=== PATIENT | female | born 1980 | race Hispanic/Latino ===

== ENCOUNTER 2019-09-23 09:22 | Inpatient (IN) | payer OTHER, SELFPAY ==
[2019-09-23] VITALS (8 sets, daily range): BP systolic 108–130; BP diastolic 60–62; PULSE 89–108; RESP 16–18; TEMP 36.4–36.7; O2SAT 93–97; BMI 25.9
--- NOTE | ~2019-09-23 | XR_ITS ---
EXAMINATION: XR chest 2V EXAM DATE: 09/24/2019 07:50 INDICATION: Cough, shortness of breath. History asthma. TECHNIQUE: Frontal and lateral projections of the chest obtained and reviewed. Comparison is made to prior examination from 02/12/2019. FINDINGS: There are small bibasilar linear opacities which appear new compared to prior study, proba krista small scattered regions of atelectasis. No confluent consolidation, pneumothorax or pleural effus ion suspected. Cardiomediastinal silhouette is normal. There are no osseous abnormalities identified. IMPRESSION: Bibasilar linear opacities most consistent with scattered atelectasis. Reviewed, dictated and finalized at location A. IMPRESSION: Bibasilar linear opacities most consistent with scattered atelectas is.
--- NOTE | ~2019-09-23 | CT_ITS ---
EXAMINATION: CT sinus wo con DATE: 09/23/2019 11:44 INDICATION: Allergic rhinitis with asthma and chronic congestion. TECHNIQUE: Computed tomography (CT) of the paranasal sinuses was performed without intravenous contra st. Iterative reconstruction technique was employed. The dose-length product was 304.88 mGy-cm. COMPARISON: None FINDINGS: There is extensive mucosal thickening in the frontal, ethmoid, and left maxillary sinuses. There is moderate mucosal thickening in sphenoid sinus and right maxillary sinus. There is a left lat eral spur of the nasal septum. The ostiomeatal units are totally occluded. IMPRESSION: 1. Extensive mucosal thickening in the paranasal sinuses with occlusion of the ostiomeatal units. Reviewed, dictated and finalized at location A.
--- NOTE | 2019-09-23 10:10 | PM.IMHP ---
H&P: HPI History of Present Illness Chief complaint: COVID POI/Asthma Narrative: Date of visit 09/22 929. Adrianne Reeves is a 39 year old female with known history of asthma who presented to [facility] with increasing cough and shortness breath over the last week. She has had problems flaring of her asthma since she had pneumonia last fall was last hospitalized here at [place] January 2019. Evaluated that time for connective tissue disease and eventually saw an senior product integrity engineer in [place] with no further intervention other than her antihistamines and nasal steroid inhaler. she had smoked for over a year and works weekends at [employer] 12 hour shifts. Some dust therapy but no real occupational exposure and does wear a mask. She has had no fever no chills and has had decreased taste and smell for over a year due to her present condition. while at [facility] emergency room she was hypoxic on arrival and after treatment improved but continue to desaturate with minimal ambulation does transferred here for further treatment and evaluation. Due to the COVID outbreak , she has not seen Dr. Ramirez motorboat mechanic inboard/outboard. She has been on bursts of steroids on several different occasions from her primary care since the of the year and does well when she is on them but relapses. cough has no purulence material. 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 She designates her mother, Radha Lambert, as her surrogate decision maker. She wishes to be a full code. She was a social smoker, mainly smoking about a 4th of a pack of cigarettes on the weekends, for about 15 years and quit in September 2018. She denies alcohol abuse. Smoking packs per day: 0.5 Smoking cigarettes per day: 10.0 Years smoked: 28 Smoking pack-years: 14.00 Smoking status: Former smoker Tobacco type: cigarettes Smoking end date: 09/26/18 Additional smoking assessment comments: patient states only smoked on weekends while at work Alcohol intake: never Substance use: never Substance use type: marijuana Gender identity (if verbalized by the patient): Female Spiritual care concerns: No Agree to blood products: No Meds Home Medications and Allergies Home Medications Medication Instructions Recorded Confirmed Type albuterol sulfate 2 puff INHALATION Q4HWA 02/08/19 09/23/19 History fluticasone propion-salmeterol 1 inh INHALATION Q12H 02/08/19 09/23/19 History [Advair Diskus] cetirizine 10 mg PO DAILY 09/23/19 09/23/19 History fluticasone propionate 2 spray INTRANASAL DAILY 09/23/19 09/23/19 History Allergies Allergy/AdvReac Type Severity Reaction Status Date / Time No Known Allergies Allergy Unverified 10/02/17 14:40 Exam Narrative: Exam Narrative: blood pressure 110 pulse is 92 saturating 94% on room air respirations 18 per minute afebrile pupil equal reactive to light sclera anicteric mouth normal lungs expiratory rhonchi expiratory wheezing with prolonged expiratory phase and no area consolidation CV tachy no murmurs or gallops abdomen is soft nontender and no masses extremities without edema good distal pulses neuro alert pleasant cooperativ
--- NOTE | 2019-09-23 10:47 | ADMGEN ---
This patient, Adrianne Reeves, was admitted to [facility] Surg Room 300-01 @ 0920. Patient/family oriented to hospital policies and general routines including ID bracelet, bed and alarms, visiting hours, pain management, procedures, bathroom and other care routines, personal items, smoking policy, room service/diet, and visiting hours. Valuables list has been completed. Information on how to activate the Rapid Response Team has been discussed. Patient/Family are encouraged to report perceived risks to care and to ask questions if they do not understand what they are told or what they should do.
[2019-09-23] MEDS: FLUTICASONE PROPIONATE 0.05% NA SPR 16 GM BTL (*BKC) 2 SPRAY NASAL (12:26)
[2019-09-23] MEDS: LORATADINE 10 MG TABLET PO (12:27)
[2019-09-23] MEDS: IPRATROPIUM BR 0.02% INH SOLN 0.5 MG/2.5 ML VIAL INHALATION ×2 (13:26→19:23)
[2019-09-23] MEDS: ALBUTEROL SULFATE NEB 2.5 MG/0.5 ML INH 5 MG INHALATION ×2 (13:26→19:23)
[2019-09-23] MEDS: methylPREDNISolone SOD SUCC 125 MG VIAL 60 MG IV PUSH ×2 (13:33→23:14)
[2019-09-23] MEDS: IBUPROFEN 400 MG TABLET 800 MG PO (18:22)
[2019-09-23] MEDS: FLUTICASONE/SALMETEROL 115-21 MCG INHALER 1 PUFF 2 PUFF INHALATION (19:24)
[2019-09-23] MEDS: ENOXAPARIN 40 MG/0.4 ML SYRINGE SUB-Q (20:01)
[2019-09-24] VITALS (11 sets, daily range): BP systolic 115–122; BP diastolic 59–68; PULSE 80–127; RESP 16–20; TEMP 36.4–37.2; O2SAT 92–95
[2019-09-24] MEDS: ALBUTEROL SULFATE NEB 2.5 MG/0.5 ML INH 5 MG INHALATION ×3 (03:07→15:24)
[2019-09-24] MEDS: IPRATROPIUM BR 0.02% INH SOLN 0.5 MG/2.5 ML VIAL INHALATION ×4 (03:07→19:11)
[2019-09-24] MEDS: methylPREDNISolone SOD SUCC 125 MG VIAL 60 MG IV PUSH ×2 (05:11→16:57)
[2019-09-24 06:13] LABS: Basophils Percent Auto 0.1 % (0.2-1.2); Hematocrit 35.9 % (37.0-47.0); Hemoglobin 12.2 g/dL (12.0-15.0); Lymphocytes Absolute Auto 0.38 K/mm3 (0.9-3.2); Lymphocytes Percent Auto 3.8 % (18.3-44.2); Mean Corpuscular Volume 91.3 fl (80-100); Mean Platelet Volume 10.3 fl (7.4-10.4); Monocytes Absolute Auto 0.2 K/mm3 (0.1-0.6); Monocytes Percent Auto 2.3 % (2.6-8.5); Neutrophils Absolute Auto 9.2 K/mm3 (1.3-6.7); Neutrophils Percent Auto 92.8 % (45.5-73.1); Platelet Count Result 338 k/mm3 (150-375); Red Blood Count 3.93 M/mm3 (4.2-5.4); Red Cell Distribution Width 13.1 % (11.5-14.5)
[2019-09-24 06:33] LABS: Anion Gap 11.5 mmol/L (7-16); Blood Urea Nitrogen 13 mg/dL (7-17); Calcium 8.4 mg/dL (8.4-10.2); Carbon Dioxide 23 mmol/L (22-30); Chloride 107 mmol/L (98-107); Estimated CRCL calculation 113 ml/min; Estimated Glomerular Filt Rate > 60; Glucose 183 mg/dL (65-105); Potassium 3.5 mmol/L (3.4-5.0); Sodium 138 mmol/L (137-145)
[2019-09-24] MEDS: FLUTICASONE/SALMETEROL 115-21 MCG INHALER 1 PUFF 2 PUFF INHALATION ×2 (07:52→19:12)
[2019-09-24] MEDS: FLUTICASONE PROPIONATE 0.05% NA SPR 16 GM BTL (*BKC) 2 SPRAY NASAL (08:21)
[2019-09-24] MEDS: LORATADINE 10 MG TABLET PO (08:21)
[2019-09-24] MEDS: IBUPROFEN 400 MG TABLET 800 MG PO (08:22)
[2019-09-24] MEDS: traMADol HCL 50 MG TABLET PO (11:50)
--- NOTE | 2019-09-24 12:53 | PM.IMPN ---
Progress Note: A&P Assessment and Plan (1) Acute respiratory failure with hypoxia: Code(s): J96.01 - Acute respiratory failure with hypoxia Status: Acute Assessment and Plan: has improved but still desaturations with activity so will continue parental steroids and taper to Q 12 hours and updraft treatments. Does not appear to be infectious but CT scan of the sinuses revealed marked mucosal thickening in all sinus cavities so antibiotics started. (2) Unspecified asthma: Code(s): J45.909 - Unspecified asthma, uncomplicated Status: Acute Assessment and Plan: as above updrafts steroids and continue her maintenance Advair (3) Allergic asthma with acute exacerbation: Code(s): J45.901 - Unspecified asthma with (acute) exacerbation Status: Acute Assessment and Plan: no obvious precipitating factor. Continue treatment of above with treatment for her allergic rhinitis 1 of her antibodies for Aspergillus was slightly elevated in the past and will have seen by Pulmonary again (4) DVT prophylaxis: Code(s): Z29.9 - Encounter for prophylactic measures, unspecified Status: Acute Assessment and Plan: Lovenox Subjective Date/time seen: 09/24/19 12:53 Interval history: Date of visit 09/23. 39 y/ o admitted with hypoxia increasing cough shortness of breath and cough. Transfer for now psych facility since she had her care here before. She feels better this a.m., But still quite a bit of cough. Exam Narrative: Exam Narrative: blood pressure 122/60 pulse is 98 saturating 95% on room air respirations 16 per minute afebrile pupil equal reactive to light sclera anicteric mouth normal lungs still expiratory rhonchi expiratory wheezing with prolonged expiratory phase and no area consolidation CV tachy no murmurs or gallops abdomen is soft nontender and no masses extremities without edema good distal pulses neuro alert pleasant cooperative no focal deficits integument no skin breakdown or rashes Objective Data Vital Signs Vital Signs: Vital Signs - 24 hr 09/23/19 13:27 09/23/19 13:39 09/23/19 14:00 Temperature 36.4 C L Pulse Rate 108 H 105 H 95 Respiratory Rate 18 18 18 Blood Pressure 108/60 Pulse Oximetry 97 09/23/19 19:23 09/23/19 19:34 09/23/19 20:00 Temperature Pulse Rate 89 94 103 H Respiratory Rate 18 18 16 Blood Pressure Pulse Oximetry 93 94 07/28/20 21:30 09/24/19 03:08 09/24/19 03:17 Temperature 36.5 C Pulse Rate 103 H 92 94 Respiratory Rate 16 18 18 Blood Pressure 130/60 Pulse Oximetry 94 09/24/19 06:00 09/24/19 07:53 09/24/19 08:08 Temperature 36.4 C L Pulse Rate 98 92 100 Respiratory Rate 16 18 18 Blood Pressure 122/61 Pulse Oximetry 95 Intake/Output Intake/Output: Intake & Output 09/21/19 09/22/19 09/23/19 09/24/19 23:59 23:59 23:59 23:59 Intake Total 1030 890 Output Total 500 800 Balance 530 90 Meds/Results Medications: Active Medications Generic Name Dose Route Start Last Admin Trade Name Freq PRN Reason Stop Dose Admin Acetaminophen 650 mg 09/23/19 09:53 Tylenol Tablet PO Q4H PRN Mild Pain (1-3) or Fever Albuterol 5 mg 09/23/19 14:00 09/24/19 07:52 Albuterol Sulf Neb 2.5mg/0.5ml INHALATION 5 mg Q6HRT MANOHAR Administration Enoxaparin Sodium 40 mg 09/23/19 21:00 09/23/19 20:01 Lovenox SUB-Q 40 mg HS MANOHAR Administration Fluticasone Propionate 2 spray 09/23/19 09:00 09/24/19 08:21 Flonase 0.05% Nasal [place] NASAL 2 spray DAILY MANOHAR Administration Ceftriaxone Sodium/Dextrose 1 gm in 50 mls @ 100 mls/hr 09/24/19 07:00 09/24/19 11:22 Rocephin 1 Gm/D5w 50 Ml IVPB Infused Q24H MANOHAR Infusion Ibuprofen 800 mg 09/23/19 18:02 09/24/19 08:22 Motrin PO 800 mg Q12H PRN Administration Headache Ipratropium [place] 0.5 mg 09/23/19 14:00 09/24/19 07:52 Atrovent Neb INHALATION 0.5 mg Q6HRT MANOHAR
--- NOTE | 2019-09-24 13:26 | PM.CNPUL ---
History of Present Illness History of Present Illness Consult date: 09/24/19 Requesting physician: Jag Baron MD Reason for consult: other (asthma exacerbation) Chief complaint: Asthma/Shortness of Breath Narrative: Asthma exacerbation see job # [id number] A/P: Allergic asthma exacerbation; steroid dependent; when she is off steroids, symptoms recur sinusitis bronchiectasis h/o elevated IgE environmental allergies; trees, grass, cats, dogs Add Pulmozyme, [place], continue antibiotics for sinusitis, nasal steroids, decongestant. continue Vest therapy for bronchiectasis monitor peak flows and O2 saturation She has a few tests yet to be completed with her allergiest-immunonologist discussed with Dr Baron. [facility] Family History Family History (Updated 09/23/19 @ 10:04 by Ashanti Hunt RN) Mother Diabetes mellitus Cancer Sibling Hypertension Social History Social History (Updated 09/23/19 @ 10:18 by Jag Baron MD) Social History: The patient lives in [place] with her 4 children ranging from age 4-22. 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 She designates her mother, Radha Lambert, as her surrogate decision maker. She wishes to be a full code. She was a social smoker, mainly smoking about a 4th of a pack of cigarettes on the weekends, for about 15 years and quit in September 2018. She denies alcohol abuse. Smoking packs per day: 0.5 Smoking cigarettes per day: 10.0 Years smoked: 28 Smoking pack-years: 14.00 Smoking status: Former smoker Tobacco type: cigarettes Smoking end date: 09/26/18 Additional smoking assessment comments: patient states only smoked on weekends while at work Alcohol intake: never Substance use: never Substance use type: marijuana Gender identity (if verbalized by the patient): Female Spiritual care concerns: No Agree to blood products: No Meds Home Medications and Allergies Home Medications Medication Instructions Recorded Confirmed Type albuterol sulfate 2 puff INHALATION Q4HWA 02/08/19 09/23/19 History fluticasone propion-salmeterol 1 inh INHALATION Q12H 02/08/19 09/23/19 History [Advair Diskus] cetirizine 10 mg PO DAILY 09/23/19 09/23/19 History fluticasone propionate 2 spray INTRANASAL DAILY 09/23/19 09/23/19 History Allergies Allergy/AdvReac Type Severity Reaction Status Date / Time No Known Allergies Allergy Unverified 10/02/17 14:40 Vital Signs Vital Signs - 24 hr 09/23/19 13:27 09/23/19 13:39 09/23/19 14:00 Temperature 36.4 C L Pulse Rate 108 H 105 H 95 Respiratory Rate 18 18 18 Blood Pressure 108/60 Pulse Oximetry 97 09/23/19 19:23 09/23/19 19:34 09/23/19 20:00 Temperature Pulse Rate 89 94 103 H Respiratory Rate 18 18 16 Blood Pressure Pulse Oximetry 93 94 09/23/19 21:30 09/24/19 03:08 09/24/19 03:17 Temperature 36.5 C Pulse Rate 103 H 92 94 Respiratory Rate 16 18 18 Blood Pressure 130/60 Pulse Oximetry 94 09/24/19 06:00 09/24/19 07:53 09/24/19 08:08 Temperature 36.4 C L Pulse Rate 98 92 100 Respiratory Rate 16 18 18 Blood Pressure 122/61 Pulse Oximetry 95 Results Laboratory Findings CBC and BMP: 09/24/19 05:30 09/24/19 05:30 Abnormal lab findings: Abnormal Labs 09/24/19 09/24/19 05:30 05:30 RBC 3.93 L Hct 35.9 L Immature Gran % (Auto) 1.0 H Neut % (Auto) 92.8 H Lymph % (Auto) 3.8 L Graham % (Auto) 2.3 L Baso % (Auto) 0.1 L Lymph # (Auto) 0.38 L Abs Immat Gran (auto) 0.10 H Absolute Neuts (auto) 9.2 H Creatinine 0.50 L Glucose 183 H
[2019-09-24] MEDS: DORNASE ALFA INH SOLN 1 MG/ML 2.5 ML AMP 2.5 MG INHALATION (19:12)
--- NOTE | 2019-09-24 20:05 | CONS_ITS ---
DATE OF CONSULTATION: 09/24/2019 REASON FOR CONSULTATION: Dr. Baron consulted me to see the patient for asthma exacerbation. HISTORY: This patient is a 39-year-old female, whom I saw in January when she was hospitalized for severe asthma. She has allergic asthma and had symptoms for over a year and had high IgE levels. She decompensated when steroids were weaned. She had a prior history of right middle lobe atelectasis and bronchiectasis. After starting a vibratory vest in the hospital and starting to use it at home, she did have improvement in her symptoms. However, she has continued to have problems with increasing symptoms when she has weaned off steroids. She saw an sticker operator, Dr. Prakash Hale at [place]. She has had extensive testing and was told that she has allergies to outside allergens such as grasses, trees, cats, and dogs. She has not been started on any immunotherapy. The majority of her testing has been negative and she will eventually have testing for atypical cystic fibrosis. She had echocardiogram with the finding of an intra-atrial septum that was aneurysmal, I do not believe that she has had a bubble study. She has intermittently required oxygen since her arrival here. She started a job a little over a month ago, working at [employer]. Weekend night shifts three 12s in a row. Last week she missed 1 shift due to sickness. She left on this Sunday morning, September 21, and in the morning, went to [facility] in [place]. She said that she has been off steroids for about a week and a half. She has had increase in her coughing, little sputum production, increased wheezing. With exertion, her saturation drops into the mid 80s. She has not had fevers, chills, loss of smell or taste, any worse than her baseline. Her chest x-ray today shows bibasilar linear opacities consistent with scattered atelectasis. CT of the sinus shows marked mucosal thickening in all sinus cavities. Therefore, antibiotics were started today. Her history on this issue does date back to August 2017, with severe intermittent urticaria with occasional angioedema that has been controlled on Benadryl with cetirizine or loratadine. She was also given multiple prednisone tapers. Her IgE previously was elevated at 1070. She has a prior history of tobacco, but none since September 2018. ALLERGIES: NO KNOWN DRUG ALLERGIES. SHE HAS CONTACT ALLERGIES TO CLEAR ADHESIVE DRESSINGS. HOME MEDICATIONS: 1. Albuterol rescue inhaler 2 puffs q.4 hours p.r.n. shortness of breath. 2. Cetirizine 10 mg a day. 3. Advair 1 puff q.12 hours. 4. Flonase nasal spray 2 sprays daily. PAST MEDICAL HISTORY: 1. History of allergic asthma with elevated IgE levels. 2. History of hypoxemic respiratory failure, this admission as well as in January 2019. 3. Aneurysmal dilatation of the interatrial septum without a shunt. Mild bronchiectasis with mild emphysema on chest CT dating back February 10, 2017. 4. Sinusitis. PAST SURGICAL HISTORY: None. SOCIAL HISTORY: History of tobacco half pack per day for 28 years, 14-pack year history, quit September 26, 2018. No current marijuana. She works at [employer]. She has 4 children. No alcohol abuse. FAMILY HISTORY: Mother has diabetes and history of cancer. Siblings have hypertension. REVIEW OF SYSTEMS: Her skin seems dry lately. She has not had a sore throat. She does cough frequently with no sputum production. The remainder of the 14-point review of systems is negative. PHYSICAL EXAMINATION: VITAL SIGNS: Height 1.65 m, weight 70.8 kg, BMI is 26, blood pressure 122/61, pulse 100, respirations 18, temperature 36.4, saturation 95% at rest. GENERAL: This is a pleasant 39-year-old female with frequent paroxysmal coughing, nonproduct
[2019-09-25] VITALS (12 sets, daily range): BP systolic 104–119; BP diastolic 61–62; PULSE 77–120; RESP 18–22; TEMP 36.7–37.1; O2SAT 94–97
[2019-09-25] MEDS: IPRATROPIUM BR 0.02% INH SOLN 0.5 MG/2.5 ML VIAL INHALATION ×4 (01:53→21:15)
[2019-09-25] MEDS: methylPREDNISolone SOD SUCC 125 MG VIAL 60 MG IV PUSH ×2 (06:02→17:39)
[2019-09-25] MEDS: FLUTICASONE PROPIONATE 0.05% NA SPR 16 GM BTL (*BKC) 2 SPRAY NASAL (08:10)
[2019-09-25] MEDS: LORATADINE 10 MG TABLET PO (08:10)
[2019-09-25] MEDS: FLUTICASONE/SALMETEROL 115-21 MCG INHALER 1 PUFF 2 PUFF INHALATION ×2 (08:50→21:15)
[2019-09-25] MEDS: DORNASE ALFA INH SOLN 1 MG/ML 2.5 ML AMP 2.5 MG INHALATION ×2 (08:50→21:15)
--- NOTE | 2019-09-25 14:38 | PM.IMPN ---
Progress Note: A&P Assessment and Plan (1) Acute respiratory failure with hypoxia: Code(s): J96.01 - Acute respiratory failure with hypoxia Status: Acute Assessment and Plan: has improved but still cough and some wheeze so will continue parental steroids 12 hours and updraft treatments. Does not appear to be infectious but CT scan of the sinuses revealed marked mucosal thickening in all sinus cavities so antibiotics started. (2) Unspecified asthma: Code(s): J45.909 - Unspecified asthma, uncomplicated Status: Acute Assessment and Plan: as above updrafts steroids and continue her maintenance Advair (3) Allergic asthma with acute exacerbation: Code(s): J45.901 - Unspecified asthma with (acute) exacerbation Status: Acute Assessment and Plan: no obvious precipitating factor. Continue treatment of above with treatment for her allergic rhinitis (4) DVT prophylaxis: Code(s): Z29.9 - Encounter for prophylactic measures, unspecified Status: Acute Assessment and Plan: Lovenox (5) Sinusitis: Code(s): J32.9 - Chronic sinusitis, unspecified Status: Acute Assessment and Plan: as above antibiotics and nasal steroids Subjective Date/time seen: 09/25/19 14:38 Interval history: Date of visit 09/24. 39 y/ o admitted with hypoxia increasing cough shortness of breath . Transfered from outside facility since she had her care here before. She feels better this a.m., with less cough and sob Exam Narrative: Exam Narrative: blood pressure 104/60 pulse is 94 saturating 95% on room air respirations 16 per minute afebrile pupil equal reactive to light sclera anicteric mouth normal lungs still some rhonchi but less expiratory wheezing with prolonged expiratory phase and no area consolidation CV tachy no murmurs or gallops abdomen is soft nontender and no masses extremities without edema good distal pulses neuro alert pleasant cooperative no focal deficits Objective Data Vital Signs Vital Signs: Vital Signs - 24 hr 09/24/19 15:25 09/24/19 15:34 09/24/19 19:12 Temperature Pulse Rate 80 127 H 92 Respiratory Rate 18 18 18 Blood Pressure Pulse Oximetry 92 09/24/19 19:25 09/24/19 21:57 09/25/19 01:53 Temperature 36.4 C Pulse Rate 95 93 99 Respiratory Rate 18 20 18 Blood Pressure 115/68 Pulse Oximetry 93 09/25/19 02:00 09/25/19 06:00 09/25/19 08:40 Temperature 36.8 C Pulse Rate 94 77 88 Respiratory Rate 18 20 18 Blood Pressure 104/61 Pulse Oximetry 95 09/25/19 08:48 09/25/19 08:50 Temperature Pulse Rate 93 Respiratory Rate 18 Blood Pressure Pulse Oximetry 94 Intake/Output Intake/Output: Intake & Output 09/22/19 09/23/19 09/24/19 09/25/19 23:59 23:59 23:59 23:59 Intake Total 1030 2020 840 Output Total 500 1550 1000 Balance 530 470 -160 Meds/Results Medications: Active Medications Generic Name Dose Route Start Last Admin Trade Name Freq PRN Reason Stop Dose Admin Acetaminophen 650 mg 09/23/19 09:53 Tylenol Tablet PO Q4H PRN Mild Pain (1-3) or Fever Dornase [place] 2.5 mg 09/24/19 20:00 09/25/19 08:50 Pulmozyme INHALATION 2.5 mg Q12HRT MANOHAR Administration Enoxaparin Sodium 40 mg 09/23/19 21:00 09/24/19 20:50 Lovenox SUB-Q Not Given HS MANOHAR Fluticasone Propionate 2 spray 09/23/19 09:00 09/25/19 08:10 Flonase 0.05% Nasal [place] NASAL 2 spray DAILY MANOHAR Administration Ceftriaxone Sodium/Dextrose 1 gm in 50 mls @ 100 mls/hr 09/24/19 07:00 09/25/19 06:48 Rocephin 1 Gm/D5w 50 Ml IVPB 100 mls/hr Q24H MANOHAR Administration Ibuprofen 800 mg 09/23/19 18:02 09/24/19 08:22 Motrin PO 800 mg Q12H PRN Administration Headache Ipratropium [place] 0.5 mg 09/23/19 14:00 09/25/19 08:50 Atrovent Neb INHALATION 0.5 mg Q6HRT MANOHAR Administration Levalbuterol HCl 1.25 mg 09/24/19 20:00 09/25/19 08
[2019-09-26] VITALS (7 sets, daily range): BP systolic 106; BP diastolic 58–71; PULSE 67–90; RESP 16–18; TEMP 36.3–36.7; O2SAT 94–99
[2019-09-26] MEDS: IPRATROPIUM BR 0.02% INH SOLN 0.5 MG/2.5 ML VIAL INHALATION ×3 (02:49→14:49)
[2019-09-26] MEDS: methylPREDNISolone SOD SUCC 125 MG VIAL 60 MG IV PUSH ×2 (06:27→17:08)
[2019-09-26] MEDS: DORNASE ALFA INH SOLN 1 MG/ML 2.5 ML AMP 2.5 MG INHALATION (08:02)
[2019-09-26] MEDS: FLUTICASONE PROPIONATE 0.05% NA SPR 16 GM BTL (*BKC) 2 SPRAY NASAL (08:27)
[2019-09-26] MEDS: LORATADINE 10 MG TABLET PO (08:27)
--- NOTE | 2019-09-26 15:36 | PM.PNPUL ---
Progress Note: A&P Assessment and Plan (1) Acute respiratory failure with hypoxia: Code(s): J96.01 - Acute respiratory failure with hypoxia Status: Acute Assessment and Plan: She has improved, does not require supplemental O2 today. discussed with Dr Baron (2) Allergic asthma with acute exacerbation: Code(s): J45.901 - Unspecified asthma with (acute) exacerbation Status: Acute Assessment and Plan: improved; will go home on (3) Bronchiectasis: Code(s): J47.9 - Bronchiectasis, uncomplicated Status: Acute Subjective Date/time seen: 09/26/19 15:36 Interval history: 39 year old female is seen in follow up for asthma exacerbation. She was also found to have sinusitis. SHe is now oxygenating well on room air, which is an improvement. She always decompensates when she is off steroids. Objective Data Vital Signs Vital Signs: Vital Signs - 24 hr 09/25/19 21:16 09/25/19 21:30 09/25/19 22:00 Temperature 37.1 C Pulse Rate 90 96 88 Respiratory Rate 18 18 18 Blood Pressure 115/61 Pulse Oximetry 97 09/26/19 02:49 09/26/19 03:00 09/26/19 06:00 Temperature 36.7 C Pulse Rate 90 85 67 Respiratory Rate 18 16 Blood Pressure 106/58 L Pulse Oximetry 99 09/26/19 08:02 09/26/19 08:14 09/26/19 14:00 Temperature 36.3 C L Pulse Rate 70 85 80 Respiratory Rate 16 18 16 Blood Pressure 106/71 Pulse Oximetry 94 09/26/19 14:51 Temperature Pulse Rate 85 Respiratory Rate 18 Blood Pressure Pulse Oximetry Intake/Output Intake/Output: Intake & Output 09/23/19 09/24/19 09/25/19 09/26/19 23:59 23:59 23:59 23:59 Intake Total 1030 2020 2170 1230 Output Total 500 1550 2300 2400 Balance 530 145 -130 1170 Meds/Results Medications: Active Medications Generic Name Dose Route Start Last Admin Trade Name Freq PRN Reason Stop Dose Admin Acetaminophen 650 mg 09/23/19 09:53 Tylenol Tablet PO Q4H PRN Mild Pain (1-3) or Fever Dornase Jewel 2.5 mg 09/24/19 20:00 09/26/19 08:02 Pulmozyme INHALATION 2.5 mg Q12HRT MANOHAR Administration Enoxaparin Sodium 40 mg 09/23/19 21:00 09/25/19 21:57 Lovenox SUB-Q Not Given HS MANOHAR Fluticasone Propionate 2 spray 09/23/19 09:00 09/26/19 08:27 Flonase 0.05% Nasal [place] NASAL 2 spray DAILY MANOHAR Administration Ceftriaxone Sodium/Dextrose 1 gm in 50 mls @ 100 mls/hr 09/24/19 07:00 09/26/19 07:19 Rocephin 1 Gm/D5w 50 Ml IVPB Infused Q24H MANOHAR Infusion Ibuprofen 800 mg 09/23/19 18:02 09/24/19 08:22 Motrin PO 800 mg Q12H PRN Administration Headache Ipratropium [place] 0.5 mg 09/23/19 14:00 09/26/19 14:49 Atrovent Neb INHALATION 0.5 mg Q6HRT MANOHAR Administration Levalbuterol HCl 1.25 mg 09/24/19 20:00 09/26/19 14:49 Xopenex 1.25 Mg/0.5 Ml INHALATION 1.25 mg Q6HRT MANOHAR Administration Loratadine 10 mg 09/23/19 09:00 09/26/19 08:27 Claritin PO 10 mg QAM MANOHAR Administration Magnesium Hydroxide 30 ml 09/23/19 09:53 Milk Of Magnesia PO DAILY PRN Constipation Methylprednisolone Sodium Succinate 60 mg 09/24/19 18:00 09/26/19 06:27 Solu-Medrol IV PUSH 60 mg Q12H MANOHAR Administration Ondansetron HCl 4 mg 09/23/19 09:53 Zofran Inj IV PUSH Q6H PRN Nausea And Vomiting Fluticasone/Salmeterol 2 puff 09/23/19 20:00 09/25/19 21:15 Advair Hfa 115-21 Mcg Inhaler (*Sp) INHALATION 2 puff Q12HRT MANOHAR Administration Tramadol HCl 50 mg 09/24/19 11:43 09/24/19 11:50 Ultram PO 50 mg Q6H PRN Administration Pain Rated 4-6 Radiology Results: ITS Impressions Sinuses CT 09/23/19 11:58 IMPRESSION: 1. Extensive mucosal thickening in the paranasal sinuses with occlusion of the ostiomeatal units. Chest X-Ray 09/24/19 08:06 IMPRESSION: Bibasilar linear opacities most consistent with scattered atelectasis.
--- NOTE | 2019-09-26 18:24 | PM.DS ---
DS: Admitting Diagnosis Admitting Diagnosis Admitting Diagnosis: Acute respiratory failure with hypoxia DS: Discharge Diagnosis Discharge Diagnosis (1) Acute respiratory failure with hypoxia: Code(s): J96.01 - Acute respiratory failure with hypoxia Status: Acute Assessment and Plan: has improved but still cough and some wheeze so will continue oral steroids on discharge and her usual inhalers. Did not appear to be infectious but CT scan of the sinuses revealed marked mucosal thickening in all sinus cavities so antibiotics started. and will complete 2 week course with Augmentin 875 b.i.d. satting 94-99 on room air before discharge (2) Unspecified asthma: Code(s): J45.909 - Unspecified asthma, uncomplicated Status: Acute Assessment and Plan: as above updrafts steroids and continue her maintenance Advair (3) Allergic asthma with acute exacerbation: Code(s): J45.901 - Unspecified asthma with (acute) exacerbation Status: Acute Assessment and Plan: no obvious precipitating factor other than possible sinusitis. Continue treatment of above with treatment for her allergic rhinitis (4) Sinusitis: Code(s): J32.9 - Chronic sinusitis, unspecified Status: Acute Assessment and Plan: as above antibiotics Augmentin 875 b.i.d. for 2 more weeks and nasal steroids she will follow-up with primary and Dr. Ramirez and if continued sinus problems probable refer to ENT DS: Summary Hospital Course Hospital Course: 39-year-old white female with allergic rhinitis and asthma presented to an outside hospital with increasing shortness of breath and cough. After treatment in the emergency room near she continued to desaturate with minimal exertion was transferred to our hospital for care. Here was given parental steroids updraft treatments and antibiotics when CT of the sinuses revealed pansinusitis. She was seen by Dr. Ramirez and will follow-up with her next 2-3 weeks. She will complete 2 week course of Augmentin 875 b.i.d. and tapering course of prednisone with her usual inhalers. She will be off work till 10/02 Time Spent with Patient Time attestation: Total time spent providing and/or coordinating discharge services: 35 minutes Exam Narrative: Exam Narrative: condition on discharge blood pressure 106/70 pulse is 80 saturating 94-99% on room air, respirations 16 per minute afebrile lungs clear prolonged expiratory phase and very faint end expiratory wheeze CV regular rate rhythm no murmurs extremities without edema good distal pulses neuro alert pleasant cooperative feeling well with slight headache which she had been having and complaining of insomnia while in hospital Discharge Plan Discharge Attending physician on discharge: Jag Baron Consulting providers: Hannah Ramirez Discharging Clinician: Jag Baron Patient Disposition: Home, Self-Care Activity: as tolerated Diet: regular Discharge Instructions: RTW 10/02 Patient Instructions: Antibiotic Form, Prednisone (By mouth), Amoxicillin/Clavulanate Potassium (By mouth), Asthma (DC) Stand Alone Forms: General Discharge Information, Work/School Release IP Follow-up/Referrals: Anjana,Pratibha Mcarthur NP [Primary Care Provider] - 4 Weeks Hannah Ramirez MD [Physician] - 2 Weeks Discharge Medications: New amoxicillin-pot clavulanate [Augmentin] 875-125 mg tablet 1 tablet PO Q12H Qty: 28 RF: 0 prednisone 20 mg tablet 20 mg PO DIRECTED Qty: 17 RF: 0 Continued fluticasone propion-salmeterol [Advair Diskus] 250-50 mcg/dose Blister With Device 1 inh INHALATION Q12H RF: 0 albuterol sulfate 90 mcg/actuation Hfa Aerosol Inhaler 2 puff INHALATION Q4HWA RF: 0 cetirizine 10 mg tablet 10 mg PO DAILY RF: 0 fluticasone propionate 50 mcg/actuation spray,suspension 2 spray INTRANASAL DAILY RF: 0 Date of admission: 09/25/19 14:53 Primary Ca
== END 2019-09-26 17:33 | disposition home or self-care (01) | DRG 141 ==
PROVIDERS: Admitting Provider Internal Medicine; PCP Nurse Practitioner; Visit Provider Internal Medicine
DX: J45.901 Unspecified asthma with (acute) exacerbation (principal); J32.8 Other chronic sinusitis; J47.9 Bronchiectasis, uncomplicated; Z87.891 Personal history of nicotine dependence
CPT/HCPCS: 36415; 70486; 71046; 80048; 85025; 94640; 94667; 96365; 96372; 96374; 96375; A9270; G0378; G0379; J0696; J1650; J2930

== ENCOUNTER 2019-11-23 15:01 | Emergency (ER) | payer OTHER, SELFPAY ==
--- NOTE | ~2019-11-23 | XR_ITS ---
EXAMINATION: XR foot LT min 3V DATE: 11/23/2019 15:28 INDICATION: Left foot pain TECHNIQUE: Dorsoplantar, lateral, and 2 oblique views of the left foot were obtained. COMPARISON: None. FINDINGS: There is mild lateral soft tissue swelling of the foot. No fracture, dislocation, or sublux ation is identified. Mild osteoarthritis is noted at the first metatarsophalangeal joint. IMPRESSION: 1. No acute osseous abnormality. Reviewed, dictated and finalized at location A.
[2019-11-23 15:08] VITALS: BP 134/84; PULSE 84; RESP 14; TEMP 36.9; O2SAT 98
--- NOTE | 2019-11-23 15:21 | ED.GENADULT ---
HPI - General Adult General Chief complaint: Extremity Injury, Lower Stated complaint: left foot pain Time Seen by Provider: 11/23/19 15:14 Source: patient and RN notes reviewed Limitations: no limitations History of Present Illness HPI narrative: 39-year-old female presents today with complaints of left foot pain and swelling for 1 day. Adrianne says she was play wrestling with her 21 year-old son when he tackled her causing her to fall with her foot under her causing injury to LT foot. Aleve (2 tablets last this morning at 09:00), ice, and elevation without relief. Hurts to bear weight. No radiation of pain. No numbness, tingling, or loss of mobility. Exacerbating factor applying weight and flexing toes upward. Denies inability to bear weight. Denies discoloration. Denies suspect foreign body. LMP 3 weeks ago. Remains active. The patient reports she have not been diagnosed with COVID-19. The patient reports she is not waiting for the results of a COVID-19 lab test. The patient reports she do not have fever, chills, weakness, or fatigue. The patient reports she do not have a new or worsening cough or shortness of breath. Denies chest pain. The patient reports she do not have any rhinorrhea, congestion, sore throat, loss of taste, nausea, vomiting, abdominal pain, and diarrhea. Tolerating po intake well. Denies recent traveling. Denies concerns for COVID-19 or exposures been home with limited outdoor exposure except for essential household needs, work, and return home. At this time, patient is not suspected of having COVID-19. Some parts of this dictation were generated by voice recognition software and may contain typographical and/or grammatical inaccuracies. Related Data Home Medications Medication Instructions Recorded Confirmed cetirizine 10 mg PO DAILY 09/23/19 11/23/19 Allergies Allergy/AdvReac Type Severity Reaction Status Date / Time No Known Allergies Allergy Verified 11/23/19 15:15 Review of Systems Review of Systems: Narrative: CONSTITUTIONAL: Denies fever, chills, sweats. EYES: Denies visual changes, redness, discharge. ENT: Denies rhinorrhea, congestion, sore throat, otalgia. CARDIOVASCULAR: Denies chest pain, palpitations, edema. RESPIRATORY: Denies dyspnea, wheezing, cough. GASTROINTESTINAL: Denies abdominal pain, nausea, vomiting, diarrhea. GENITOURINARY: Denies dysuria, hematuria, abnormal discharge. SKIN: Denies rash or itching. MUSCULOSKELETAL: Denies acute back pain or myalgia. Complains of pain and swelling to left foot. NEUROLOGIC: Denies numbness or focal weakness. PSYCHIATRIC: Denies anxiety or depression. All other systems reviewed are negative, except as documented in HPI and below. [facility] Past Medical History Medical History (Updated 11/23/19 @ 15:49 by ALEXANDRE Dia) Acute respiratory failure with hypoxia Anxiety Arthritis Back pain Bone spur LT knee Bronchiectasis DVT prophylaxis Echocardiogram findings abnormal, without diagnosis History of depression Pneumonia Pulmonary infiltrate in right lung on chest x-ray Recurrent bronchospasm Seasonal allergies Sinusitis Suicide attempt Unspecified asthma UTI (urinary tract infection) Surgical History Surgical History (Updated 11/23/19 @ 15:31 by ALEXANDRE Dia) History of left knee surgery Removal of bone spur. History of skin graft Right thigh; infected tattoo. History of tubal ligation Status post tonsillectomy and adenoidectomy Family History Family History Mother Diabetes mellitus Cancer Sibling Hypertension Social History Social History Social History: The patient lives in [place] with her 4 children ranging from age 4-22. 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 She designates her mother, Radha Lambert, as her surrogate decision maker. She wishes
== END 2019-11-23 15:54 | disposition home or self-care (01) ==
PROVIDERS: Emergency Provider Nurse Practitioner Family; PCP Nurse Practitioner
DX: S93.602A Unspecified sprain of left foot, initial encounter (principal); W03.XXXA Other fall on same level due to collision with another person, initial encounter; M19.90 Unspecified osteoarthritis, unspecified site; Z87.891 Personal history of nicotine dependence
CPT/HCPCS: 73630; 99213; G0463

== ENCOUNTER 2019-12-21 10:24 | Emergency (ER) | payer OTHER, SELFPAY ==
--- NOTE | ~2019-12-21 | XR_ITS ---
EXAMINATION: XR chest 2V DATE: 12/21/2019 10:53 INDICATION: Cough and shortness of breath TECHNIQUE: frontal and lateral views of the chest were obtained. COMPARISON: Chest radiograph dated 09/24/2019 FINDINGS: The lungs are clear with no focal airspace opacities, pulmonary edema, pleural effusion or pneumothor ax. The cardiomediastinal silhouette is normal. Visualized bones and soft tissues are unremarkable. IMPRESSION: 1. No acute cardiopulmonary disease. Reviewed, dictated and finalized at location A.
[2019-12-21 10:33] VITALS: BP 154/82; PULSE 115; RESP 20; TEMP 37.2; O2SAT 97
--- NOTE | 2019-12-21 10:37 | ED.GENADULT ---
HPI - General Adult General Chief complaint: Shortness of Breath/Dyspnea Stated complaint: cough congestion Time Seen by Provider: 12/21/19 10:37 Source: patient and RN notes reviewed Mode of arrival: ambulatory Limitations: no limitations History of Present Illness HPI narrative: 39-year-old female presents with complains of cough, shortness of breath, and chest congestion for the past 2 weeks. Adrianne says symptoms increased over the past 24-48 hours with dyspnea, wheezing, and chills. Duo nebs, mucus relief medication, and Zyrtec without relief. Constant dry cough with intermittent productive cough. 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 History of Asthma, Pneumonia respiratory failure, and hospitalizations due to respiratory distress. No rhinorrhea. Nasal congestion. Denies sore throat. No high fevers, drooling, neck or throat swelling. No chest pain. Denies nausea, vomiting, and abdominal pain. Tolerating liquids well. Remains active. The patient reports she have not been diagnosed with COVID-19. The patient reports she is not waiting for the results of a COVID-19 lab test. The patient reports she do not have weakness or fatigue. The patient reports she does have a worsening cough and shortness of breath. Works at [employer]. The patient reports she do not have any rhinorrhea, sore throat, loss of taste, and diarrhea. Denies recent traveling. Denies concerns for COVID-19 or exposures been home with limited outdoor exposure except for essential household needs, work, and return home. At this time, patient is not suspected of having COVID-19. Some parts of this dictation were generated by voice recognition software and may contain typographical and/or grammatical inaccuracies. Related Data Home Medications Medication Instructions Recorded Confirmed cetirizine 10 mg PO DAILY 09/23/19 12/21/19 albuterol sulfate 2 puff INHALATION Q4H PRN 12/21/19 12/21/19 fluticasone propion-salmeterol 1 inh INHALATION BID 12/21/19 12/21/19 [Wixela Inhub] ipratropium-albuterol 3 ml INHALATION QID PRN 12/21/19 12/21/19 Allergies Allergy/AdvReac Type Severity Reaction Status Date / Time No Known Allergies Allergy Verified 11/23/19 15:15 Review of Systems Review of Systems: Narrative: CONSTITUTIONAL: Denies sweats, fatigue, fever. Complains of chills. EYES: Denies visual changes, redness, discharge. ENT: Complains of congestion. Denies rhinorrhea, sore throat, otalgia. CARDIOVASCULAR: Denies chest pain, palpitations, edema. RESPIRATORY: Complains of dyspnea, wheezing, dry cough, chest congestion, intermittent productive cough. GASTROINTESTINAL: Denies abdominal pain, nausea, vomiting, diarrhea. GENITOURINARY: Denies dysuria, hematuria, abnormal discharge. SKIN: Denies rash or itching. MUSCULOSKELETAL: Denies acute back pain, joint pain, or myalgia. NEUROLOGIC: Denies numbness or focal weakness. PSYCHIATRIC: Denies anxiety or depression. [facility] Past Medical History Medical History (Updated 12/21/19 @ 12:12 by ALEXANDRE Dia) Acute respiratory failure with hypoxia Acute upper respiratory infection Anxiety Arthritis Back pain Bone spur LT knee Bronchiectasis DVT prophylaxis Echocardiogram findings abnormal, without diagnosis History of depression Pneumonia Pulmonary infiltrate in right lung on chest x-ray Recurrent bronchospasm Seasonal allergies Sinusitis Smoker Suicide attempt Unspecified asthma UTI (urinary tract infection) Surgical History Surgical History History of left knee surgery Removal of bone spur. History of skin graft Right thigh; infected tattoo. History of tubal ligation Status post tonsillectomy and adenoidectomy Family History Family History Mother Diabetes mellitus Cancer Sibling Hypertension Social History Social History (Reviewed
[2019-12-21] MEDS: ALBUTEROL SULFATE NEB 2.5 MG/3 ML INH INHALATION ×2 (11:01→11:48)
[2019-12-21] MEDS: IPRATROPIUM BR 0.02% INH SOLN 0.5 MG/2.5 ML VIAL INHALATION ×2 (11:01→11:48)
[2019-12-21 11:29] VITALS: PULSE 106; RESP 22; O2SAT 96
[2019-12-21 12:30] VITALS: BP 125/73; PULSE 91; RESP 20; O2SAT 97
== END 2019-12-21 12:35 | disposition home or self-care (01) ==
PROVIDERS: Emergency Provider Nurse Practitioner Family; PCP Nurse Practitioner
DX: J45.41 Moderate persistent asthma with (acute) exacerbation (principal); Z20.828 Contact with and (suspected) exposure to other viral communicable diseases; Z87.891 Personal history of nicotine dependence; M19.90 Unspecified osteoarthritis, unspecified site
CPT/HCPCS: 71046; 94640; 96372; 99213; G0463; J1100

== ENCOUNTER 2020-02-07 10:13 | Emergency (ER) | payer OTHER, MEDICAID, SELFPAY ==
--- NOTE | ~2020-02-07 | XR_ITS ---
EXAMINATION: XR chest 2V DATE: 02/07/2020 11:07 INDICATION: Cough TECHNIQUE: frontal and lateral views of the chest were obtained. COMPARISON: Chest radiograph dated 12/21/2019 FINDINGS: Right middle lobe opacity. Additional more subtle opacity at the left upper lung zone. No pulmonary e anjelica, pleural effusion or pneumothorax. The cardiomediastinal silhouette is normal. Visualized bones and soft tissues are unremarkable. IMPRESSION: 1. Opacities in the right middle and left upper lobes which could represent atelectasis and/or pneumo jennifer. Reviewed, dictated and finalized at location A. SUPERVISOR IMPRESSION: 1. Opacities in the right middle and left upper lobes which could represent ate lectasis and/or pneumonia.
[2020-02-07 10:40] VITALS: BP 130/81; PULSE 127; RESP 20; TEMP 36.7; O2SAT 96
--- NOTE | 2020-02-07 10:42 | ED.GENADULT ---
HPI - General Adult General Chief complaint: Upper Respiratory Infection Stated complaint: URI Time Seen by Provider: 02/07/20 10:42 Source: patient Mode of arrival: ambulatory Limitations: no limitations History of Present Illness HPI narrative: 39-year-old female patient presents to the [facility] with complaints of cough and shortness of breath for months. Patient states back in September she was hospitalized for severe pneumonia and respiratory failure. Patient has followed up with a toll test worker since then. Patient states that she is supposed to see her primary doctor on Sunday but states that she ran out of DuoNeb treatments this morning at 7 AM. Patient states she continues to have shortness of breath coughing and wheezing. Patient states that they cannot really figure out what is causing this. Patient states she was seen here in November and was referred to have a Covid test however she ended up getting her Covid test somewhere else besides [place] and was told that she was negative. Patient states that she continues to smoke cigarettes. Patient states that her cough is dry and nonproductive. Denies any fevers that she is aware of. Related Data Home Medications Medication Instructions Recorded Confirmed cetirizine 10 mg PO DAILY 09/23/19 02/07/20 albuterol sulfate 90 mcg INHALATION DIRECTED 02/07/20 02/07/20 Allergies Allergy/AdvReac Type Severity Reaction Status Date / Time No Known Allergies Allergy Verified 11/23/19 15:15 Review of Systems Review of Systems: Narrative: CONSTITUTIONAL: Denies fever, chills, or sweats. EYES: Denies visual changes, redness, or discharge. ENT: Denies rhinorrhea, congestion, sore throat, or otalgia. CARDIOVASCULAR: Denies chest pain, palpitations, or edema. RESPIRATORY: Positive cough with dyspnea. GASTROINTESTINAL: Denies abdominal pain, nausea, vomiting, or diarrhea. GENITOURINARY: Denies dysuria or hematuria. SKIN: Denies rash or itching. MUSCULOSKELETAL: Denies back pain, joint pain, or myalgia. NEUROLOGIC: Denies headache, numbness, or weakness. PSYCHIATRIC: Denies anxiety or depression. [facility] Past Medical History Medical History Acute respiratory failure with hypoxia Acute upper respiratory infection Anxiety Arthritis Back pain Bone spur LT knee Bronchiectasis DVT prophylaxis Echocardiogram findings abnormal, without diagnosis History of depression Pneumonia Pulmonary infiltrate in right lung on chest x-ray Recurrent bronchospasm Seasonal allergies Sinusitis Smoker Suicide attempt Unspecified asthma UTI (urinary tract infection) Surgical History Surgical History History of left knee surgery Removal of bone spur. History of skin graft Right thigh; infected tattoo. History of tubal ligation Status post tonsillectomy and adenoidectomy Family History Family History Mother Diabetes mellitus Cancer Sibling Hypertension Social History Social History Social History: The patient lives in [place] with her 4 children ranging from age 4-22. 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 She designates her mother, Radha Lambert, as her surrogate decision maker. She wishes to be a full code. She was a social smoker, mainly smoking about a 4th of a pack of cigarettes on the weekends, for about 15 years and quit in September 2018. She denies alcohol abuse. Smoking packs per day: 0.5 Smoking cigarettes per day: 10.0 Years smoked: 28 Smoking pack-years: 14.00 Smoking status: Former smoker Tobacco type: cigarettes Smoking end date: 09/26/18 Additional smoking assessment comments: patient states only smoked on weekends while at work Alcohol intake: never Substance use: never Substance use
[2020-02-07 10:56] VITALS: BP 130/81; PULSE 127; RESP 20; TEMP 36.7; O2SAT 96
[2020-02-07] MEDS: IPRATROPIUM BR 0.02% INH SOLN 0.5 MG/2.5 ML VIAL INHALATION (11:06)
[2020-02-07] MEDS: ALBUTEROL SULFATE NEB 2.5 MG/3 ML INH INHALATION (11:06)
[2020-02-07 11:32] VITALS: PULSE 127; RESP 20; O2SAT 96
[2020-02-07 12:14] VITALS: PULSE 138; RESP 20; O2SAT 96
== END 2020-02-07 12:13 | disposition home or self-care (01) ==
PROVIDERS: Emergency Provider Nurse Practitioner Family
DX: J18.9 Pneumonia, unspecified organism (principal); M19.90 Unspecified osteoarthritis, unspecified site; J45.909 Unspecified asthma, uncomplicated; F17.210 Nicotine dependence, cigarettes, uncomplicated
CPT/HCPCS: 71046; 94640; 99213; G0463

== ENCOUNTER 2020-09-01 17:24 | Emergency (ER) | payer OTHER, MEDICAID, SELFPAY ==
--- NOTE | ~2020-09-01 | XR_ITS ---
XR abdomen/kub 1V 09/01/2020 18:34 INDICATION: Foreign body. TECHNIQUE: KUB COMPARISON: None FINDINGS: Bowel gas pattern is normal. There is no evidence of free air, mass, organomegaly, ascites or obstruction. No abnormal calculi are seen. The bones appear intact. There is a vaginal. Syncope . No intra-abdominal foreign bodies identified. IMPRESSION: 1: No acute abdominal abnormality identified. Reviewed, dictated and finalized at location A.
--- NOTE | 2020-09-01 17:30 | ED.FEMALEGU ---
HPI - Female Genitourinary General Chief complaint: Urogenital-Female Stated complaint: unable to find tampon string Time Seen by Provider: 09/01/20 18:14 Source: patient and RN notes reviewed Mode of arrival: ambulatory Limitations: no limitations History of Present Illness HPI Narrative: 40-year-old female presents with concern for inability to remove a tampon. Reports she placed a tampon yesterday, has been unable to find the tampon string. She reports light menstrual flow currently. She denies abdominal pain, fever, general malaise. Denies purulent vaginal discharge. MD elicited complaint: other (Foreign body) Related Data Home Medications Medication Instructions Recorded Confirmed fluticasone propion-salmeterol 50 inh INHALATION DAILY 09/01/20 09/01/20 [Wixela Inhub] montelukast 10 mg PO DAILY 09/01/20 09/01/20 Allergies Allergy/AdvReac Type Severity Reaction Status Date / Time No Known Allergies Allergy Verified 09/01/20 18:24 Review of Systems Review of Systems: Narrative: CONSTITUTIONAL: Denies malaise, chills, sweats, or fever. GASTROINTESTINAL: Denies abdominal pain, nausea, vomiting GENITOURINARY: Denies dysuria or hematuria. Reports retained tampon SKIN: Denies rash or itching. MUSCULOSKELETAL: Denies back pain or myalgia. All systems reviewed & are unremarkable except as noted in HPI and below PMFSH Past Medical History Medical History Acute respiratory failure with hypoxia Acute upper respiratory infection Anxiety Arthritis Back pain Bone spur LT knee Bronchiectasis DVT prophylaxis Echocardiogram findings abnormal, without diagnosis History of depression Pneumonia Pulmonary infiltrate in right lung on chest x-ray Recurrent bronchospasm Seasonal allergies Sinusitis Smoker Suicide attempt Unspecified asthma UTI (urinary tract infection) Surgical History Surgical History History of left knee surgery Removal of bone spur. History of skin graft Right thigh; infected tattoo. History of tubal ligation Status post tonsillectomy and adenoidectomy Family History Family History Mother Diabetes mellitus Cancer Sibling Hypertension Social History Social History (Reviewed 12/21/19 @ 10:51 by RICHARD Dia Social History: The patient lives in [place] with her 4 children ranging from age 4-22. 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 She designates her mother, Radha Lambert, as her surrogate decision maker. She wishes to be a full code. She was a social smoker, mainly smoking about a 4th of a pack of cigarettes on the weekends, for about 15 years and quit in September 2018. She denies alcohol abuse. Smoking packs per day: 0.5 Smoking cigarettes per day: 10.0 Years smoked: 28 Smoking pack-years: 14.00 Smoking status: Former smoker Tobacco type: cigarettes Smoking end date: 09/26/18 Additional smoking assessment comments: patient states only smoked on weekends while at work Alcohol intake: never Substance use: never Substance use type: marijuana Gender identity (if verbalized by the patient): Female Spiritual care concerns: No Agree to blood products: No Comments At time of signature, agree with nursing past medical, surgical, social and family history. There is no relevant family history pertinent to the presenting complaint Exam Narrative: Exam Narrative: GENERAL: Well-appearing, well-nourished, and in no acute distress. HEAD: Normocephalic. EYES: PERRLA, conjunctivae clear. NECK: Supple. No lymphadenopathy CHEST: Clear to auscultation. No respiratory distress. HEART: Regular rate and rhythm. ABDOMEN: Soft, nontender upon palpation, nondistended, SKIN: Warm, dry, no rash. NEURO: Alert and oriented x3. PSYCH: Normal mood and aff
[2020-09-01 17:38] VITALS: BP 139/87; PULSE 76; RESP 18; TEMP 36.8; O2SAT 100
== END 2020-09-01 18:57 | disposition home or self-care (01) ==
PROVIDERS: Emergency Provider Nurse Practitioner
DX: Z71.1 Person with feared health complaint in whom no diagnosis is made (principal); Z87.891 Personal history of nicotine dependence; M19.90 Unspecified osteoarthritis, unspecified site
CPT/HCPCS: 74018; 99212; G0463

== ENCOUNTER 2021-11-10 04:12 | Emergency (ER) | payer OTHER, MEDICAID, SELFPAY ==
[2021-11-10] VITALS (22 sets, daily range): BP systolic 100–132; BP diastolic 76–88; PULSE 91–117; RESP 15–26; TEMP 37.1; O2SAT 92–93
--- NOTE | ~2021-11-10 | XR_ITS ---
EXAMINATION: XR chest 1V portable DATE: 11/10/2021 05:27 INDICATION: Dyspnea TECHNIQUE: frontal view of the chest was obtained. COMPARISON: Chest radiograph dated 02/07/2020 FINDINGS: New airspace opacities in the right mid and lower lung zones. No pleural effusion or pneumothorax. Th e cardiomediastinal silhouette is normal. Visualized bones and soft tissues are unremarkable. IMPRESSION: 1. New opacities in the right mid and lower lung zone which are concerning for pneumonia. The opacity in the midlung zone is relatively focal and would recommend radiographic follow-up to resolution to exclude less likely malignancy. Reviewed, dictated and finalized at location A. IMPRESSION: 1. New opacities in the right mid and lower lung zone which are concerning for pneumonia. The opacity in the midlung zone is relatively focal and would recomm end radiographic follow-up to resolution to exclude less likely malignancy.
[2021-11-10] MEDS: IPRATROPIUM BR 0.02% INH SOLN 0.5 MG/2.5 ML VIAL INHALATION (05:01)
[2021-11-10] MEDS: ALBUTEROL SULFATE NEB 2.5 MG/3 ML INH 5 MG INHALATION (05:02)
[2021-11-10 05:28] LABS: Basophils Absolute Auto 0.1 K/mm3 (0.0-0.1); Basophils Percent Auto 0.4 % (0.2-1.2); Eosinophils Absolute Auto 0.7 K/mm3 (0-0.3); Eosinophils Percent Auto 4.5 % (0-4.4); Hematocrit 36.7 % (37.0-47.0); Hemoglobin 12.7 g/dL (12.0-15.0); Immature Granulocyte Absolute 0.09 K/mm3 (0.00-0.031); Immature Granulocyte Percent A 0.6 % (0-0.5); Lymphocytes Absolute Auto 1.09 K/mm3 (0.9-3.2); Lymphocytes Percent Auto 6.8 % (18.3-44.2); Mean Corpuscular HGB Conc 34.6 g/dl (32-36); Mean Corpuscular Hemoglobin 31.8 pg (26-34); Mean Platelet Volume 9.9 fl (7.4-10.4); Monocytes Absolute Auto 0.8 K/mm3 (0.1-0.6); Neutrophils Absolute Auto 13.3 K/mm3 (1.3-6.7); Neutrophils Percent Auto 82.7 % (45.5-73.1); Platelet Count Result 352 k/mm3 (150-375); Red Blood Count 3.99 M/mm3 (4.2-5.4); White Blood Count 16.1 K/mm3 (4.5-10.0)
[2021-11-10 05:30] LABS: Alanine Aminotransferase 29 U/L (6-35); Albumin Level 3.9 g/dL (3.5-5.1); Alkaline Phosphatase 70 U/L (38-126); Anion Gap 10 mmol/L (8-16); Aspartate Amino Transferase 29 U/L (14-36); Bilirubin,Total 0.3 mg/dL (0.2-1.3); Blood Urea Nitrogen 11 mg/dL (7-17); Calcium 8.8 mg/dL (8.4-10.2); Carbon Dioxide 25 mmol/L (22-30); Chloride 100 mmol/L (98-107); Estimated CRCL calculation 94 ml/min; Estimated Glomerular Filt Rate > 60; Glucose 149 mg/dL (65-110); Magnesium 1.8 mg/dL (1.6-2.3); Potassium 3.2 mmol/L (3.4-5.0); Sodium 135 mmol/L (137-145)
[2021-11-10 06:13] LABS: SARS-CoV-2 RNA PCR Negative
[2021-11-10 06:14] LABS: Appearance Urine Clear (Clear); Bilirubin Urine Negative (Negative); Blood Urine Negative (Negative); Color Urine Yellow (Yellow); Glucose Urine UA Negative (Negative); Ketones Urine Trace mg/dL (Negative); Leukocyte Esterase Ur Negative LEU/UL (Negative); Nitrate Urine Negative (Negative); Protein Urine Negative (Negative); Specific Grav Ur 1.025 (1.001-1.035); Urobilinogen Urine 0.2 mg/dL (<2.0)
--- NOTE | 2021-11-10 06:18 | ED.GENADULT ---
HPI - General Adult General Chief complaint: Shortness of Breath/Dyspnea Stated complaint: SOB Time Seen by Provider: 11/10/21 04:34 History of Present Illness HPI narrative: Patient is a 41-year-old female who presents emergency department with chief complaint of shortness of breath. Patient reports she has history of asthma reports that she is also had episodes of multiple times with pneumonia. Patient reports over the last several days she has been having increasing shortness of breath worse whenever she exerts herself. Patient reports he has been coughing had a thick mucus production. Patient reports has been wheezing as well and has been using her inhaler. Patient reports no prior history of intubation but has had required BiPAP in the past Related Data Home Medications Medication Instructions Recorded Confirmed fluticasone 250 mcg-salmeterol 50 50 inh inhalation DAILY 09/01/20 09/01/20 mcg/dose blistr powdr for inhalation (Wixela Inhub) montelukast 10 mg tablet 10 mg PO DAILY 09/01/20 09/01/20 Allergies Allergy/AdvReac Type Severity Reaction Status Date / Time No Known Allergies Allergy Verified 09/01/20 18:24 Review of Systems Review of Systems: A 10 system review of systems was completed on the patient and is negative except for what is stated in the HPI. Nursing and ancillary documentation was reviewed. [facility] Past Medical History Medical History Acute respiratory failure with hypoxia Acute upper respiratory infection Anxiety Arthritis Back pain Bone spur LT knee Bronchiectasis DVT prophylaxis Echocardiogram findings abnormal, without diagnosis History of depression Pneumonia Pulmonary infiltrate in right lung on chest x-ray Recurrent bronchospasm Seasonal allergies Sinusitis Smoker Suicide attempt Unspecified asthma UTI (urinary tract infection) Surgical History Surgical History History of left knee surgery Removal of bone spur. History of skin graft Right thigh; infected tattoo. History of tubal ligation Status post tonsillectomy and adenoidectomy Family History Family History Mother Diabetes mellitus Cancer Sibling Hypertension Social History Social History Social History: The patient lives in [place] with her 4 children ranging from age 4-22. 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 She designates her mother, Radha Lambert, as her surrogate decision maker. She wishes to be a full code. She was a social smoker, mainly smoking about a 4th of a pack of cigarettes on the weekends, for about 15 years and quit in September 2018. She denies alcohol abuse. Smoking packs per day: 0.5 Smoking cigarettes per day: 10.0 Years smoked: 28 Smoking pack-years: 14.00 Smoking status: Former smoker Tobacco type: cigarettes Smoking end date: 09/26/18 Additional smoking assessment comments: patient states only smoked on weekends while at work Alcohol intake: never Substance use: never Substance use type: marijuana Gender identity (if verbalized by the patient): Female Spiritual care concerns: No Agree to blood products: No Exam Narrative: GENERAL: Well-appearing, well-nourished, and in no acute distress. HEAD: Normocephalic, atraumatic. EYES: PERRLA and EOMI. ENT: Nares clear, no rhinorrhea or epistaxis. Mucous membranes moist. NECK: Supple. CHEST: Scattered wheezes to auscultation. No respiratory distress. HEART: Regular rate and rhythm. No murmur heard. Normal peripheral pulses. ABDOMEN: Soft, nontender, nondistended, normal active bowel sounds. EXTREMITIES: Normal range of motion. No edema. SKIN: Warm, dry, no rash. NEURO: No focal deficits. Alert and oriented x3. PSYCH
[2021-11-10 06:23] LABS: Mucus Urine Rare /lpf; RBC Urine 0-2 /hpf (0-2); Squamous Epithelial Cell Urine Many /hpf (Few); WBC Urine 0-3 /hpf
[2021-11-10 06:24] LABS: Add Urine Microscopic? YES
== END 2021-11-10 06:45 | disposition home or self-care (01) ==
PROVIDERS: Emergency Provider Emergency Medicine; PCP Registered Nurse
DX: J18.9 Pneumonia, unspecified organism (principal); J45.901 Unspecified asthma with (acute) exacerbation; Z87.891 Personal history of nicotine dependence; Z20.822 Contact with and (suspected) exposure to COVID-19
CPT/HCPCS: 36415; 71045; 80053; 81001; 83605; 83735; 84145; 85025; 94640; 99283; C9803; U0003; U0005

== ENCOUNTER 2024-02-27 16:28 | Emergency (ER) | payer OTHER, MEDICAID, SELFPAY ==
[2024-02-27 16:35] VITALS: BP 135/83; PULSE 115; RESP 16; TEMP 36.6; O2SAT 100
--- NOTE | 2024-02-27 17:00 | ED.GENADULT ---
HPI - General Adult General Chief complaint: Skin/Abscess/Foreign Body Stated complaint: rash on face and body Time Seen by Provider: 02/27/24 17:00 Source: patient, RN notes reviewed and old records reviewed Mode of arrival: ambulatory Limitations: no limitations History of Present Illness HPI narrative: 43-year-old female presents to the [facility] with bilateral axilla rash is for 2 weeks. Has been taking Benadryl. States there very itchy. States on Sunday 2 days ago started with spots to her face. Denies any new creams ointments lotions or detergents. Patient reports a lot of environmental allergies Onset (ago): week(s) (2) Treatments prior to arrival: other (Benadryl) Related Data Home Medications ?Medication ?Instructions ?Recorded ?Confirmed ?Last Taken ?Type fluticasone 250 mcg-salmeterol 50 50 inh inhalation DAILY 09/01/20 09/01/20 Unknown History mcg/dose blistr powdr for inhalation (Wixela Inhub) montelukast 10 mg tablet 10 mg PO DAILY 09/01/20 09/01/20 Unknown History Allergies Allergy/AdvReac Type Severity Reaction Status Date / Time Sulfa (Sulfonamide Allergy Severe Anaphylaxis Verified 02/27/24 17:07 Antibiotics) Review of Systems Review of Systems: All systems reviewed & are unremarkable except as noted in HPI and below Constitutional: Constitutional: Reports no additional constitutional complaints ENT: Reports system reviewed and no additional complaints, except as documented Cardiovascular: Cardiovascular: Reports no additional cardiovascular complaints, Denies chest pain and Denies dyspnea Respiratory: Respiratory: Reports no additional respiratory complaints, Denies chest congestion, Denies cough and Denies dyspnea Musculoskeletal: Musculoskeletal: Reports no additional musculoskeletal complaints Integumentary/Breasts: Skin/Breast: Reports as per HPI PMF Past Medical History Medical History Smoker Acute upper respiratory infection Suicide attempt Anxiety Bone spur LT knee UTI (urinary tract infection) Back pain Arthritis Seasonal allergies Pneumonia Sinusitis Unspecified asthma Bronchiectasis Echocardiogram findings abnormal, without diagnosis DVT prophylaxis Pulmonary infiltrate in right lung on chest x-ray Recurrent bronchospasm Acute respiratory failure with hypoxia History of depression Surgical History Surgical History History of tubal ligation History of skin graft Right thigh; infected tattoo. History of left knee surgery Removal of bone spur. Status post tonsillectomy and adenoidectomy Family History Family History Mother Diabetes mellitus Cancer Sibling Hypertension Social History Social History Social History: The patient lives in [place] with her 4 children ranging from age 4-22. 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 She designates her mother, Radha Lambert, as her surrogate decision maker. She wishes to be a full code. She was a social smoker, mainly smoking about a 4th of a pack of cigarettes on the weekends, for about 15 years and quit in September 2018. She denies alcohol abuse. Smoking packs per day: 0.5 Smoking cigarettes per day: 10.0 Years smoked: 28 Smoking pack-years: 14.00 Smoking status: Former smoker Tobacco type: cigarettes Smoking end date: 09/26/18 Additional smoking assessment comments: patient states only smoked on weekends while at work Alcohol intake: never Substance use: never Substance use type: marijuana Gender identity (if verbalized by the patient): Female Spiritual care concerns: No Agree to blood products: No Comments At the time of my signature, I reviewed and agree with the nursing past medical, surgical, social, and family history. There is no relevant family history pertinent to the patient complaint. Exam Const: General: cooperative, healthy appearing, comfortable, no acute distress, well developed, alert and well nourished Nutritional Appearance: well nourished Orientation/consciousness: patient oriented x3 Limitations: no limitations HENMT: Head: normal to inspection Ears: hearing grossly normal bilaterally, external ears normal, TM's normal bilaterally, EAC's normal, mastoids normal and no periauricular adenopathy Mouth: Yes Normal oral and palatal mucosa present, Yes lip normal, Yes tongue normal and Yes moist mucous membranes Throat: posterior oropharynx normal, tonsils normal, uvula midline and no uvular edema Eyes: General: appearance normal, both eyes and all related structures Alignment and Position: alignment normal Neck: Neck: normal visual inspection, full ROM, no lymphadenopathy and no meningeal signs Chest: Chest palpation & inspection: normal inspection of the chest Resp: Effort & Inspection: normal respiratory effort and able to speak in complete sentences Auscultation: clear to auscultation bilaterally, no crackles, no rales, no rhonchi and no wheezes Cardio: Rate: regular rate Skin: General skin exam: normal color and no rashes or lesions noted Rashes: rashes noted (Bilateral axillas red, mildly raised, no increased warmth, no fluctuance.) Other: Hives noted to face without lip or tongue involvement. Neuro: General: patient oriented x3, gait normal, moves all extremities and no meningeal signs Cognition (Neuro): normal cognition Speech: normal speech Gait exam (Neuro): Normal gait present Extrem: General: normal to inspection, full ROM, capillary refill normal and normal gait Psych: Appearance: grossly normal and well kempt Mental Status: mental status grossly normal Speech and movement: Normal speech and movement present and Clear speech present Affect: normal affect Attitude: cooperative Course Course Level of Care: Express Care Visit Vital Signs Vital signs: Vital Signs Temperature 97.9 F 02/27/24 16:35 Pulse Rate 115 H 02/27/24 16:35 Respiratory Rate 16 02/27/24 16:35 Blood Pressure 135/83 02/27/24 16:35 Pulse Oximetry 100 02/27/24 16:35 Oxygen Delivery Room Air 02/27/24 16:35 Temperature 97.9 F 02/27/24 16:35 Pulse Rate 115 H 02/27/24 16:35 Respiratory Rate 16 02/27/24 16:35 Blood Pressure 135/83 02/27/24 16:35 Pulse Oximetry 100 02/27/24 16:35 Oxygen Delivery Room Air 02/27/24 16:35 Reviewed Medical Decision Making MDM Narrative Medical decision making narrative: Patient sitting comfortably in exam room. Nontoxic, vitals stable. Patient in no acute distress Patient presents for rash bilateral axilla x2 weeks, face x2 days. Exam consistent with contact dermatitis Patient appropriate for outpatient treatment and follow-up Discharge instructions reviewed with patient, as well as provided in writing per nursing staff. The instructions also include specific and strict return/GO TO THE ER as well as f/u information. All questions have been answered, and the patient deny any further questions with discharge and discharge plan. Some parts of this dictation were generated by voice recognition software and may contain typographical and/or grammatical inaccuracies. Differential Diagnosis Differential Diagnosis: Dermatitis, allergic reaction Medical Records Medical records reviewed: Yes I reviewed the external patient's medical records. Vital Signs Vital Signs: Vital Signs Temperature 97.9 F 02/27/24 16:35 Pulse Rate 115 H 02/27/24 16:35 Respiratory Rate 16 02/27/24 16:35 Blood Pressure 135/83 02/27/24 16:35 Pulse Oximetry 100 02/27/24 16:35 Oxygen Delivery Room Air 02/27/24 16:35 Temperature 97.9 F 02/27/24 16:35 Pulse Rate 115 H 02/27/24 16:35 Respiratory Rate 16 02/27/24 16:35 Blood Pressure 135/83 02/27/24 16:35 Pulse Oximetry 100 02/27/24 16:35 Oxygen Delivery Room Air 02/27/24 16:35 Reviewed Lab Data Lab results reviewed: Yes I reviewed the patient's lab results. Labs: Reviewed Critical Care Time Critical Care Time Critical Care Time: No Discharge Plan Discharge Clinical Impression: Urticaria Contact dermatitis Qualifiers: Contact dermatitis type: allergic Contact dermatitis trigger: unspecified trigger Qualified Code(s): L23.9 - Allergic contact dermatitis, unspecified cause Patient Disposition: Home, Self-Care Condition: Stable Instructions: Antibiotic Form, Contact Dermatitis (DC) Additional Instructions: The most important part of your care is follow up with Primary care provider. Take Benadryl 25-50 mg every 8 hours for itching Take Zyrtec every day Take Pepcid 20mg daily for 7 days Take the steroids starting tonight. Taking this this late in the evening it may keep you awake tonight Avoid hot showers, Take cool showers. Hot showers will make rashes worse Apply cool compresses every 2-3 hours for 15 minutes Go to the ER for new or worsening symptoms such as shortness of breath. Patient Language: South African Prescriptions: New prednisone 20 mg tablet See Rx Instructions .Route .COMPLEX Qty: 18 0RF Rx Instructions: Take 60 mg daily for 3 days, 40 mg daily for 3 days, 20 mg daily for 3 days No Action fluticasone propion-salmeterol [Wixela Inhub] 250-50 mcg/dose blister with device 50 inh INHALATION DAILY montelukast 10 mg tablet 10 mg PO DAILY prednisone 20 mg tablet 40 mg PO DAILY 5 Days Qty: 10 0RF albuterol sulfate 90 mcg/actuation HFA aerosol inhaler 2 puff inhalation QID PRN (Reason: shortness of breath or wheezing) Qty: 8.5 0RF Follow-up/Referrals: Tyler,Tracy Nolasco, [employer] 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
== END 2024-02-27 17:11 | disposition home or self-care (01) ==
PROVIDERS: Emergency Provider Nurse Practitioner; PCP Registered Nurse
DX: L23.9 Allergic contact dermatitis, unspecified cause (principal); J45.909 Unspecified asthma, uncomplicated; F41.8 Other specified anxiety disorders; Z87.891 Personal history of nicotine dependence
CPT/HCPCS: 99213; G0463

== ENCOUNTER 2024-04-17 19:13 | Emergency (ER) | payer OTHER, MEDICAID, SELFPAY ==
[2024-04-17 19:25] VITALS: BP 109/89; PULSE 83; RESP 15; TEMP 37.3; O2SAT 99
[2024-04-17 19:40] LABS: EDCOVIDSCREEN Negative (Negative); EDINFLUASCREEN Negative (Negative); EDINFLUBSCREEN Negative (Negative)
--- NOTE | 2024-04-17 19:41 | ED_ITS ---
HPI - URI/Sore Throat General Chief Complaint: Upper Respiratory Infection Stated Complaint: Bodyaches/Congestion Time Seen by Provider: 04/17/24 19:15 Source: patient Mode of arrival: ambulatory Limitations: no limitations History of Present Illness HPI Narrative: Patient is a 44-year-old female who presents with 3 days of congestion, body aches headache, fatigue, sore throat with postnasal drip and intermittently productive cough. Denies any fevers, chills, nausea, vomiting, diarrhea. Patient is using albuterol inhaler roughly twice a day. History of asthma in smoker but states she has not smoked or vape did last few days. Has taken [id number] medication with no relief. Related Data Home Medications ?Medication ?Instructions ?Recorded ?Confirmed ?Last Taken ?Type fluticasone fur. 200 mcg-umeclid inhalation 04/17/24 Unknown History 62.5 mcg-vilant 25 mcg inhalat.powder (Trelegy Ellipta) Allergies Allergy/AdvReac Type Severity Reaction Status Date / Time Sulfa (Sulfonamide Allergy Severe Anaphylaxis Verified 04/17/24 19:19 Antibiotics) Review of Systems Review of Systems: All systems reviewed & are unremarkable except as noted in HPI and below Constitutional: Constitutional: Denies chills, Reports fatigue, Denies fever(s), Reports headache(s), Denies malaise and Denies weakness Eyes: Eyes: Denies blurry vision, Denies itchy eyes and Denies loss of vision ENT: Denies otalgia, Reports headache(s), Reports nasal congestion, Denies sinus pain and Reports sore throat Cardiovascular: Cardiovascular: Denies chest pain, Denies irregular heart rhythm and Denies dyspnea Respiratory: Respiratory: Reports cough, Denies dyspnea and Reports wheezing Gastrointestinal: Gastrointestinal: Denies abdominal pain, Denies diarrhea, Denies nausea and Denies vomiting Musculoskeletal: Musculoskeletal: Denies back pain, Reports myalgias and Denies arthralgias Integumentary/Breasts: Skin/Breast: Denies pruritus and Denies rash Neurologic: Reports headache(s), Denies loss of vision and Denies weakness Psychiatric: Psychiatric: Reports no additional psychiatric complaints Endocrine: Endocrine: Denies fatigue Allergic/Immunologic: Allergic/Immunologic: Denies itchy eyes PMFSH Past Medical History Medical History Smoker Acute upper respiratory infection Suicide attempt Anxiety Bone spur LT knee UTI (urinary tract infection) Back pain Arthritis Seasonal allergies Pneumonia Sinusitis Unspecified asthma Bronchiectasis Echocardiogram findings abnormal, without diagnosis DVT prophylaxis Pulmonary infiltrate in right lung on chest x-ray Recurrent bronchospasm Acute respiratory failure with hypoxia History of depression Surgical History Surgical History History of tubal ligation History of skin graft Right thigh; infected tattoo. History of left knee surgery Removal of bone spur. Status post tonsillectomy and adenoidectomy Family History Family History Mother Diabetes mellitus Cancer Sibling Hypertension Social History Social History Social History: The patient lives in [place] with her 4 children ranging from age 4-22. 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 She designates her mother, Radha Lambert, as her surrogate decision maker. She wishes to be a full code. She was a social smoker, mainly smoking about a 4th of a pack of cigarettes on the weekends, for about 15 years and quit in September 2018. She denies alcohol abuse. Smoking packs per day: 0.5 Smoking cigarettes per day: 10.0 Years smoked: 28 Smoking pack-years: 14.00 Smoking status: Former smoker Tobacco type: cigarettes Smoking end date: 09/26/18 Additional smoking assessment comments: patient states only smoked on weekends while at work Alcohol intake: never Substance use: never Substance use type: marijuana Gender identity (if verbalized by the patient): Female Spiritual care concerns: No Agree to blood products: No Comments At time of signature, agree with nursing past medical, surgical, social and family history. There is no relevant family history pertinent to the presenting complaint. Exam Const: General: cooperative, healthy appearing, comfortable, no acute distress and well nourished Nutritional Appearance: well nourished Orientation/consciousness: patient oriented x3 Limitations: no limitations HENMT: Head: normal to inspection, normocephalic and atraumatic Ears: hearing grossly normal bilaterally, external ears normal, TM's normal bilaterally, EAC's normal and no periauricular adenopathy Face/Nose/Sinus: Normal external nose present, Abnormal mucous membranes and turbinates present erythematous bilateral and diffuse, normal facial exam, sinuses nontender and face symmetric Face and sinus: normal facial exam, sinuses nontender and face symmetric Mouth: Yes Normal oral and palatal mucosa present, Yes lip normal, Yes tongue normal, Yes Normal salivary glands and ducts present, Yes oropharynx normal and Yes moist mucous membranes Teeth and gingiva: dentition normal Throat: posterior oropharynx normal, tonsils normal and uvula midline Eyes: General: appearance normal, both eyes and all related structures Alignment and Position: alignment normal and position normal Periorbital: periorbital findings normal Eyelids: eyelids normal Pupils: Equal, round and reactive pupils present Neck: Neck: normal visual inspection, full ROM, no lymphadenopathy and supple Chest: Chest palpation & inspection: normal inspection of the chest and normal palpation of entire chest wall Resp: Effort & Inspection: normal respiratory effort and able to speak in complete sentences Auscultation: no crackles, no rales, no rhonchi and wheezes expiratory wheezes and throughout Cardio: Rate: regular rate Rhythm: regular rhythm Heart sounds: S1 normal heart sound present and S2 normal heart sound present GI: Inspection: normal to inspection Skin: General skin exam: normal color and no rashes or lesions noted Neuro: General: patient oriented x3 and moves all extremities Cranial nerves: Yes Equal, round and reactive pupils present Speech: normal speech Gait exam (Neuro): Normal gait present Extrem: General: normal to inspection, full ROM and no edema Psych: Appearance: grossly normal and well kempt Mental Status: mental status grossly normal Speech and movement: Normal speech and movement present Affect: normal affect Attitude: cooperative Thought process: Normal thought process present Course Course Emergency Course: Discharge instructions reviewed with patient, as well as provided in writing per nursing staff. The instructions also include specific and strict return/GO TO THE ER as well as f/u information. All questions have been answered, and the patient deny any further questions with discharge and discharge plan. Portions of this record may have been created with voice recognition software Level of Care: Express Care Visit Vital Signs Vital signs: Vital Signs Temperature 37.3 C 04/17/24 19:25 Pulse Rate 83 04/17/24 19:25 Respiratory Rate 15 04/17/24 19:25 Blood Pressure 109/89 04/17/24 19:25 Pulse Oximetry 99 04/17/24 19:25 Oxygen Delivery Room Air 04/17/24 19:25 Temperature 37.3 C 04/17/24 19:25 Pulse Rate 83 04/17/24 19:25 Respiratory Rate 15 04/17/24 19:25 Blood Pressure 109/89 04/17/24 19:25 Pulse Oximetry 99 04/17/24 19:25 Oxygen Delivery Room Air 04/17/24 19:25 Reviewed MDM - URI/Sore Throat MDM Narrative Medical decision making narrative: Pt well hydrated appearing, in no respiratory distress, hemodynamically stable. Recommend supportive care. The patient is stable at time of discharge the clinical impression was discussed and the patient was given the opportunity to ask questions, which were addressed as completely as possible given the information available at present. Anticipatory guidance and return to care precautions were discussed and the importance of primary care follow-up was stressed and encouraged. The patient voiced understanding of the plan, indications to return, and the need for follow-up. Differential diagnosis considered: Bronchitis, Rea virus, strep pharyngitis, allergic rhinitis, upper respiratory tract infection, sinusitis, rhinosinusitis, nasopharyngitis. viral pharyngitis, otitis media, otitis externa, otitis effusion, foreign body, cerumen impaction, viral syndrome, and influenza.? Exam findings show no acute concerns or changes; patient is non-toxic appearing and is in no distress.? Patient is appropriate for outpatient treatment and follow- up.? Medical Records Attestation: I reviewed the patient's medical records. Lab Data Attestation: I reviewed the patient's lab results. Labs: Lab Results 04/17/24 Range/Units 19:38 POC Influenza A Ag Negative (Negative) POC Influenza B Ag Negative (Negative) POC SARS CoV-2 Ag Negative (Negative) Discharge Plan Discharge Clinical Impression: Upper respiratory infection with cough and congestion, History of asthma Patient Disposition: Home, Self-Care Condition: Stable Instructions: Upper Respiratory Infection (ED) Additional Instructions: Take antibiotic as prescribed. Use liquid cough medicines as needed for cough. Use nebulizer at least twice a day Other symptomatic treatments include: -Alternate Tylenol and Motrin per package directions for fever or pain: Tylenol 650-1000mg by mouth every 4-6 hours. Do not exceed 4000mg in 24 hours. Advil (Ibuprofen) 600 mg by mouth every 6 hours. Do not exceed 2400mg in 24 hours. 8 AM: Tylenol 11 AM: Ibuprofen 2 PM: Tylenol 5 PM: Ibuprofen 8 PM: Tylenol 11 PM: Ibuprofen 2 AM: Tylenol 5 AM: Ibuprofen -Antihistamine medication such as Benadryl at night and Zyrtec/Claritin/Becky during the day can help improve symptoms. -Use Flonase twice a day for 5 days then daily to help reduce the inflammation and dry up your sinuses. -You can also use Sudafed or Mucinex. Be sure to drink plenty of water with these medications at least 8 ounces with every dose and it is important to drink 8 to 10 glasses of water per day. Water is a natural decongestant -Eat and drink things that are easy to swallow, like tea or soup, or popsicles. -Oral rinses such as: Salt water gargles and/or may use topical anesthetic (eg. Chloraseptic spray) or lozenges to relieve dryness or throat pain). -Frequent hand washing or hand plug shaper hand is one of the best ways to prevent sp read of infection. -Using a vaporizer or humidifier at night will also help thin secretions and help with coughing up phlegm. Call your Primary Care Doctor and make a follow-up appointment in 3 days. If your cough worsens, you develop a fever greater than 103, you develop shaking chills, a fast heartbeat, trouble breathing and/or feel you are are breathing much faster than usual, call your Primary Care Doctor or go to the ER. Patient Language: Zimbabwean Prescriptions: New albuterol sulfate 2.5 mg /3 mL (0.083 %) solution for nebulization 2.5 mg inhalation Q6H Qty: 90 0RF promethazine-DM 6.25-15 mg/5 mL syrup 5 ml PO Q4-6H PRN (Reason: cough) Qty: 118 0RF azithromycin 250 mg tablet See Rx Instructions .ROUTE .COMPLEX Qty: 6 0RF Rx Instructions: For 250 mg dose pack: take 500 mg today (day 1), then 250 mg for 4 days (days 2-5) No Action Trelegy Ellipta 200-62.5-25 mcg blister with device INHALATION albuterol sulfate 90 mcg/actuation HFA aerosol inhaler 2 puff inhalation QID PRN (Reason: shortness of breath or wheezing) Qty: 8.5 0RF Follow-up/Referrals: PHYSICIAN,MACHINE DESIGN ENGINEER [Primary Care Provider] - Asif Liriano MD [Physician] - 3 Days Stand Alone Forms: Work/School Release IP Time of Disposition: 19:53
== END 2024-04-17 19:55 | disposition home or self-care (01) ==
PROVIDERS: Emergency Provider Nurse Practitioner Family
DX: J06.9 Acute upper respiratory infection, unspecified (principal); R05.9 Cough, unspecified; J45.909 Unspecified asthma, uncomplicated; Z20.822 Contact with and (suspected) exposure to COVID-19; Z87.891 Personal history of nicotine dependence; M19.90 Unspecified osteoarthritis, unspecified site
CPT/HCPCS: 87426; 87804; 99213; G0463

== ENCOUNTER 2024-10-12 18:09 | Emergency (ER) | payer OTHER, MEDICAID, SELFPAY ==
--- NOTE | 2024-10-12 18:10 | ED.GENADULT ---
HPI - General Adult General Chief complaint: Eye Problems Stated complaint: Skin Issues/Right Eye Time Seen by Provider: 10/12/24 18:10 Source: patient Mode of arrival: ambulatory Limitations: no limitations History of Present Illness HPI narrative: 44-year-old female patient presents to the [facility] with complaints of a rash around the right eye that she noticed this morning. Patient states she just went to work yesterday and states she works in the [employer]. Patient states she does have a lot of allergy and skin issues and does get shots for her eczema. Patient denies being around anything that she was allergic to denies being around any poison linden or doing any gardening or being outside in the last couple of days. Patient states the rash is very itchy and swollen. Patient states she did take a Zyrtec and Benadryl today. Related Data Home Medications ?Medication ?Instructions ?Recorded ?Confirmed ?Last Taken ?Type benralizumab 30 mg/mL subcutaneous mg subcut 10/12/24 Unknown History auto-injector (Fasenra Pen) bupropion HCl 300 mg 24 hr tablet, mg PO 10/12/24 Unknown History extended release fluticasone fur. 100 mcg-umeclid 1 inh inhalation DAILY 10/12/24 Unknown History 62.5 mcg-vilant 25 mcg inhalat.powder (Trelegy Ellipta) nemolizumab-ilto 30 mg mg subcut 10/12/24 Unknown History subcutaneous pen injector (Nemluvio) propranolol 20 mg tablet mg 10/12/24 Unknown History Allergies Allergy/AdvReac Type Severity Reaction Status Date / Time Sulfa (Sulfonamide Allergy Severe Anaphylaxis Verified 10/12/24 18:14 Antibiotics) Review of Systems Review of Systems: CONSTITUTIONAL: Denies fever, chills, or sweats. EYES: Denies visual changes, redness, or discharge. ENT: Denies rhinorrhea, congestion, sore throat, or otalgia. CARDIOVASCULAR: Denies chest pain, palpitations, or edema. RESPIRATORY: Denies cough or dyspnea. GASTROINTESTINAL: Denies abdominal pain, nausea, vomiting, or diarrhea. GENITOURINARY: Denies dysuria or hematuria. SKIN: Positive rash around the right eye with itching. MUSCULOSKELETAL: Denies back pain, joint pain, or myalgia. NEUROLOGIC: Denies headache, numbness, or weakness. PSYCHIATRIC: Denies anxiety or depression. [facility] Past Medical History Medical History Eczema Smoker Acute upper respiratory infection Suicide attempt Anxiety Bone spur LT knee UTI (urinary tract infection) Back pain Arthritis Seasonal allergies Pneumonia Sinusitis Unspecified asthma Bronchiectasis Echocardiogram findings abnormal, without diagnosis DVT prophylaxis Pulmonary infiltrate in right lung on chest x-ray Recurrent bronchospasm Acute respiratory failure with hypoxia History of depression Surgical History Surgical History History of tubal ligation History of skin graft Right thigh; infected tattoo. History of left knee surgery Removal of bone spur. Status post tonsillectomy and adenoidectomy Family History Family History Mother Diabetes mellitus Cancer Sibling Hypertension Social History Social History Social History: The patient lives in [place] with her 4 children ranging from age 4-22. She was a [employer] but now works at [employer] on the weekends. She designates her mother, Radha Lambert, as her surrogate decision maker. She wishes to be a full code. She was a social smoker, mainly smoking about a 4th of a pack of cigarettes on the weekends, for about 15 years and quit in September 2018. She denies alcohol abuse. Smoking packs per day: 0.5 Smoking cigarettes per day: 10.0 Years smoked: 28 Smoking pack-years: 14.00 Smoking status: Former smoker Tobacco type: cigarettes Smoking end date: 09/26/18 Additional smoking assessment comments: patient states only smoked on weekends while at work Alcohol intake: never Substance use: never Substance use type: marijuana Gender identity (if verbalized by the patient): Female Spiritual care concerns: No Agree to blood products: No Comments At the time of my signature I agree with nursing past medical history, surgical, social, and family history. There is no relevant family history pertinent to the presenting complaint. Exam Narrative: GENERAL: Well-appearing, well-nourished, and in no acute distress. HEAD: Normocephalic, atraumatic. EYES: PERRLA and EOMI. Patient does have a surrounding rash of the right eye with redness and swelling to the upper eyelid. There is some vesicle areas noted to the left side of the cheek ENT: Nares clear, no rhinorrhea or epistaxis. Mucous membranes moist. Posterior pharynx with no erythema, tonsillar enlargement, exudates or lesions present. Bilateral TMs are clear no erythema or foreign bodies the canal. Patient does appear to have a white film to the tongue. NECK: Supple. No lymphadenopathy CHEST: Clear to auscultation. No respiratory distress. HEART: Regular rate and rhythm. No murmur heard. Normal peripheral pulses. ABDOMEN: Soft, nontender, nondistended, normal active bowel sounds. EXTREMITIES: Normal range of motion. No edema. SKIN: Warm, dry, no rash. NEURO: No focal deficits. Alert and oriented x3. Course Course Level of Care: Express Care Visit Vital Signs Vital signs: Vital Signs Temperature 36.9 C 10/12/24 18:16 Pulse Rate 76 10/12/24 18:16 Respiratory Rate 18 10/12/24 18:16 Blood Pressure 128/89 10/12/24 18:16 Pulse Oximetry 98 10/12/24 18:16 Oxygen Delivery Room Air 10/12/24 18:16 Temperature 36.9 C 10/12/24 18:16 Pulse Rate 76 10/12/24 18:16 Respiratory Rate 18 10/12/24 18:16 Blood Pressure 128/89 10/12/24 18:16 Pulse Oximetry 98 10/12/24 18:16 Oxygen Delivery Room Air 10/12/24 18:16 Vital signs reviewed. Medical Decision Making MDM Narrative Medical decision making narrative: Discussed with patient that at 1st glance it looks like poison linden but patient is adamant that she has not been around any plants recently. Discussed with patient that we will go ahead and treat her as a contact dermatitis around the eye with some steroids. Discussed with patient continue to take Benadryl and Zyrtec as needed. Also discussed with patient that I am concerned that she is developing thrush on her tongue which could be due to the shots that she gets for her eczema. I will go ahead and give her some nystatin swish and swallow to help with this opportunistic infection. Patient verbalized understanding denies any other questions or concerns at this time. Differential Diagnosis Differential Diagnosis: Differential diagnosis: Conjunctivitis, foreign body, corneal ulcer, Keratitis, dendritic lesions, corneal abrasion, very orbital infection, orbital cellulitis, orbital pain, acute narrow angle glaucoma, detached retina, central retinal artery occlusion, complete hyphema, vitreous hemorrhage, optic neuritis, globe disruption Vital Signs Vital Signs: Vital Signs Temperature 36.9 C 10/12/24 18:16 Pulse Rate 76 10/12/24 18:16 Respiratory Rate 18 10/12/24 18:16 Blood Pressure 128/89 10/12/24 18:16 Pulse Oximetry 98 10/12/24 18:16 Oxygen Delivery Room Air 10/12/24 18:16 Temperature 36.9 C 10/12/24 18:16 Pulse Rate 76 10/12/24 18:16 Respiratory Rate 18 10/12/24 18:16 Blood Pressure 128/89 10/12/24 18:16 Pulse Oximetry 98 10/12/24 18:16 Oxygen Delivery Room Air 10/12/24 18:16 Critical Care Time Critical Care Time Critical Care Time: No Discharge Plan Discharge Clinical Impression: Allergic contact dermatitis of eyelid of right eye, Candidiasis of mouth Patient Disposition: Home Condition: Stable Instructions: Antibiotic Form, Oral Candidiasis (ED) Additional Instructions: Wash the area with soap and cool water only. Use skin creams/lotion or anti-itch medicine to reduce itchiness Avoid scratching when possible to prevent worsening of the condition and disruption of the skin that could lead to bacterial infection To relieve itching, place a cool washcloth or some ice over the area that itches, rather than scratching Follow up with primary care provider or seek ER if you have trouble breathing, become hoarse, or start wheezing, develop belly cramps, vomiting or feel dizzy. Patient Language: Azerbaijani Prescriptions: New prednisone 10 mg tablets,dose pack See Rx Instructions .ROUTE .COMPLEX Qty: 48 0RF Rx Instructions: 50 mg x 3 days, 40 mg x 3 days, 30 mg x 3 days, 20 mg x 3 days, 10 mg x 3 days nystatin 100,000 unit/mL suspension 5 ml PO QID 14 Days Qty: 280 0RF Rx Instructions: swish and swallow No Action propranolol 20 mg tablet bupropion HCl 300 mg tablet extended release 24 hr PO Fasenra Pen 30 mg/mL auto-injector SUBCUT Nemluvio 30 mg pen injector SUBCUT Trelegy Ellipta 100-62.5-25 mcg blister with device 1 inh inhalation DAILY Follow-up/Referrals: Frankie,KARINA Gregg [Primary Care Provider] - Time of Disposition: 18:29
[2024-10-12 18:16] VITALS: BP 128/89; PULSE 76; RESP 18; TEMP 36.9; O2SAT 98
== END 2024-10-12 18:41 | disposition home or self-care (01) ==
PROVIDERS: Emergency Provider Nurse Practitioner Family; PCP Physician Assistant
DX: H01.111 Allergic dermatitis of right upper eyelid (principal); H01.112 Allergic dermatitis of right lower eyelid; B37.0 Candidal stomatitis; Z87.891 Personal history of nicotine dependence; M19.90 Unspecified osteoarthritis, unspecified site; F41.9 Anxiety disorder, unspecified; F32.A Depression, unspecified
CPT/HCPCS: 99213; G0463